=== PATIENT | male | born 1995 | race Caucasian/White ===

== ENCOUNTER → 2024-09-10 | Outpatient (CLI) | payer OTHER, SELFPAY ==
[2024-09-10 10:56] LABS: ALB/GLOB Ratio 1.4 RATIO (0.9-2.4); AST(SGOT) 16 U/L (15-37); Alanine Aminotransfer ALT/SGPT 42 U/L (16-61); Albumin, Serum 4.3 g/dL (3.2-5.0); Alkaline Phosphatase 76 U/L (45-117); Anion Gap 5 (5-15); BUN 14 mg/dL (7-18); Calcium,Total 9.3 mg/dL (8.5-10.1); Chloride 104 mmol/L (98-107); EST Glomerular Filtration Rate 93 mL/min (>60); Est Glom Filt Rate - Afr Amer 112 mL/min (>60); Globulin 3.1 g/dL (2.2-4.2); Glucose 126 mg/dL (74-106); Potassium 4.3 mmol/L (3.5-5.1); Protein, Total 7.4 g/dL (6.4-8.2); Sodium Level 139 mmol/L (136-145)
== END | disposition home or self-care (01) ==
LOC: MTLAB 09:08
PROVIDERS: PCP Family Medicine; Referring Provider Family Medicine; Visit Provider Family Medicine
DX: Z13.1 Encounter for screening for diabetes mellitus (principal)
CPT/HCPCS: 36415; 80053

== ENCOUNTER → 2024-09-14 | Outpatient (CLI) | payer OTHER, SELFPAY ==
[2024-09-14 18:07] LABS: Hemoglobin A1c 5.3 % (3.8-5.6)
== END | disposition home or self-care (01) ==
PROVIDERS: PCP Family Medicine; Referring Provider Family Medicine; Visit Provider Family Medicine
DX: Z13.1 Encounter for screening for diabetes mellitus (principal)
CPT/HCPCS: 36415; 83036

== ENCOUNTER → 2025-03-04 | Outpatient (CLI) | payer OTHER, SELFPAY ==
--- OUTSIDE RECORDS SUMMARY | 2025-03-04 07:22 | XMS RPT_ITS | CCD ---
Author Organization [facility] Care Team Providers Care Housekeeper Name Role Phone Sustersic, Anil Unavailable Unavailable Mary, Nicole Unavailable Unavailable Sustersic, Anil V Unavailable Unavailable Bures, Dmitriy Unavailable Unavailable Sustersic, Anil Unavailable Unavailable Bures, Dmitriy Unavailable Unavailable Sustersic, Anil V Unavailable Unavailable Unavailable Iggy VEGA, Tai Goode Attending Unavailable Siria, Staron Primary Care Unavailable Neyda Beverly Referring Unavailable SiriaNeyda Attending Unavailable Siria, Staron Referring Unavailable Siria, Staron Attending Unavailable Siria, Chalon Primary Care Unavailable Allergies Allergy Classification Reported Allergen(s) Allergy Type Date of Onset Reaction(s) Facility (4 sources) Sulfonamides (Antibiotic); Translations: [Sulfa Drugs] drug allergy [facility] Work Phone: (1 source) drug allergy [facility] Work Phone: (1 source) drug allergy [facility] Work Phone: (2 sources) Amoxicillin / Clavulanate; Translations: [Augmentin] Drug Allergy [facility] Work Phone: (1 source) Furazolidone; Translations: [Furoxone] Drug Allergy [facility] Work Phone: (1 source) cashew nut allergenic extract Drug Allergy 04-19-2024 [facility] (1 source) Penicillins Drug allergy (disorder) 04-19-2024 [facility] (1 source) pistachio nut allergenic extract Drug Allergy 04-19-2024 [facility] (1 source) Sulfonamides (Antibiotic) Drug allergy (disorder) 04-19-2024 [facility] Medications Completed/Discontinued Medications Medication Drug Class(es) Dates Sig (Normalized) Sig (Original) azithromycin 250 mg oral tablet (2 sources) Macrolide Antimicrobial Start: 03-04-2019 Azithromycin 250 MG Oral Tablet TAKE 2 TABLETS ON DAY 1 THEN TAKE 1 TABLET A DAY FOR 4 DAYS. Quantity: 1 Refills: 0 Ordered: 04-Mar-2019 Anil Eduardo DO Start : 04-Mar-2019 Active citalopram 40 mg oral tablet (4 sources) Serotonin Reuptake Inhibitor Start: 03-29-2017 take 1 tablet by mouth once daily Citalopram Hydrobromide 40 MG Oral Tablet TAKE 1 TABLET DAILY (PATIENT MUST BE SEEN BY PHYSICIAN FOR FURTHER REFILLS) Quantity: 90 Refills: 3 Ordered: 22-Jan-2020 Dmitriy Chaves DO Start : 29-Mar-2017 Active fluticasone propionate 0.05 mg/actuat metered dose nasal spray (4 sources) Corticosteroid Start: 05-21-2017 Fluticasone Propionate 50 MCG/ACT Nasal Suspension Quantity: 0 Refills: 0 Ordered: 21-May-2017 DO Start : 21-May-2017 Active Start: 05-21-2017 Fluticasone Pr opionate 50 MCG/ACT Nasal Suspension Refills: 0 Start : 21-May-2017 Active loratadine 10 mg oral capsul e (4 sources) Start: 05-21-2017 Claritin 10 MG Oral Capsule Quantity: 0 Refills: 0 Ordered: 21-May-2017 DO Start : 21-May-2017 Active Start: 05-21-2017 Claritin 10 MG Oral Capsule Refills: 0 Start : 21-May-2017 Active pantoprazole 40 mg delayed release oral tablet (4 sources) Proton Pump Inhibitor Start: 07-30-2017 take 1 tablet by mouth once daily Pantoprazole Sodium 40 MG Oral Tablet Delayed Release TAKE 1 TABLET DAILY. Quantity: 90 Refills: 3 Ordered: 11-Sep-2017 Anil Eduardo DO Start : 30-Jul-2017 Active predniSONE 20 mg oral tablet (1 source) Start: 04-20-2020 take 3 tablets by mouth once daily, then take 2 tablets by mouth once daily, then take 1 tablet by mouth once daily predniSONE 20 MG Oral Tablet TAKE 3 TABLETS DAILY FOR 3 DAYS, THEN 2 TABLETS DAILY FOR 3 DAYS, THEN 1 TABLET DAILY FOR 3 DAYS. Quantity: 18 Refills: 0 Ordered: 20-Apr-2020 Shahid Spence MD Start : 20-Apr-2020 Active tobramycin 3 mg/ml ophthalmic solution (1 source) Aminoglycoside Antibacterial Start: 01-08-2022 take 2 drop(s) into the eye(s) three times daily Tobramycin 0.3 % Ophthalmic Solution 2 drops 3 times a day to the affected eye. Dispense 5 mL. Quantity: 1 Refills: 0 Ordered: 08-Jan-2022 Shahid Spence MD Start : 08-Jan-2022 Active Problems Active Problems Problem Classification Problem Date Documented Date Episodic/Chronic Anxiety disorders (4 sources) Generalized anxiety disorder; Translations: [Generalized anxiety disorder] Chronic Esophageal disorders (4 sources) Gastroesophageal reflux disease; Translations: [Esophageal reflux] Chronic Immunizations and screening for infectious disease (3 sources) Encounter for immunization; Translations: [Requires diphtheria, tetanus and pertussis vaccination] Episodic Inflammation; infection of eye (except that caused by tuberculosis or sexually transmitteddisease) (1 source) Acute conjunctivitis; Translations: [Acute conjunctivitis, unspecified] Episodic Other lower respiratory disease (4 sources) Chronic cough; Translations: [Cough] Episodic Other non-traumatic joint disorders (1 source) Hip pain; Translations: [Pain in joint, pelvic region and thigh] Episodic Other non-traumatic joint disorders (1 source) Joint pain; Translations: [Pain in joint, pelvic region and thigh] Episodic Other screening for suspected conditions (not mental disorders or infectious disease) (1 source) Encounter for screening for diabetes mellitus; Translations: [Encounter for screening for diabetes mellitus] Onset: 10-08-2024 Episodic Residual codes; unclassified (1 source) Requires diphtheria, tetanus and pertussis vaccination; Translations: [Need for Tdap vaccination] Episodic Superficial injury; contusion (1 source) Contusion of left ankle; Translations: [Contusion of ankle] Episodic Past or Other Problems Problem Classification Problem Date Documented Da te Episodic/Chronic Other lower respiratory disease (4 sources) H/O: bronchitis; Translations: [Personal history of other diseases of respiratory system] Resolved: 07-30-2017 Episodic NEGATED: Highlighted row has not occurred!Residual codes; unclassified (8 sources) Disease Episodic Results Test Name Value Interpretation Reference Range Facility Hemoglobin A1con 09-14-2024 HbA1c (Bld) [Mass fraction] 5.3 % Normal 3.8-5.6 [facility] Comment on above: Order Comment: Order Date: 09/14/24 Order Info: 4548-4 - A1C Result Comment: Norm al < 5.7 % Prediabetic 5.7 - 6.4 % Diabetic >or= 6.5 % Please note range changes. Performed By: #### L [id number] #### [facility] [address] [place], [address] Comprehensive Metabolic Prof ilon 09-10-2024 Albumin [Mass/Vol] 4.3 g/dL Normal 3.2-5.0 [facility] Comment on above: Order Comment: Order Date: 09/01/24 Order Info: 0786-1 - CMP Performed By: #### L [id number] #### [facility] [address] [place], [address] Albumin/Globulin [Mass ratio] 1.4 {ratio} Normal 0.9-2.4 [facility] Comment on above: Order Comment: Order Date: 09/01/24 Order Info: 0786-1 - CMP Performed By: #### L [id number] #### [facility] [address] [place], [address] ALK P 76 U/L Normal 45-117 [facility] Comment on above: Order Comment: Order Date: 09/01/24 Order Info: 0786-1 - CMP Performed By: #### L [id number] #### [facility] [address] [place], [address] ALT [Catalytic activity/Vol] 42 U/L Normal 16-61 [facility] Comment on above: Order Comment: Order Date: 09/01/24 Order Info: 0786-1 - CMP Performed By: #### L [id number] #### [facility] [address] [place], [address] AST [Catalytic activity/Vol] 16 U/L Normal 15-37 [facility] Comment on above: Order Comment: Order Date: 09/01/24 Order Info: 0786-1 - CMP Performed By: #### L [id number] #### [facility] [address] [place], [address] Bilirubin [Mass/Vol] 0.70 mg/dL Normal 0.20-1.00 [facility] Comment on above: Order Comment: Order Date: 09/01/24 Order Info: 0786-1 - CMP Result Comment: For patients on eltrombopag therapy, use of Dimension [place] TBIL is not recommended. Performed By: #### L [id number] #### [facility] [address] [place], [address] BUN/CRE 14.0 RATIO Normal 10-20 [facility] Comment on above: Order Comment: Order Date: 09/01/24 Order Info: 0786-1 - CMP Performed By: #### L [id number] #### [facility] [address] [place], [address] CA,Total 9.3 mg/dL Normal 8.5-10.1 [facility] Comment on above: Order Comment: Order Date: 09/01/24 Order Info: 0786-1 - CMP Performed By: #### L [id number] #### [facility] [address] [place], [address] Chloride [Moles/Vol] 104 mmol/L Normal 98-107 [facility] Comment on above: Order Comment: Order Date: 09/01/24 Order Info: 0786-1 - CMP Performed By: #### L [id number] #### [facility] [address] [place], [address] CO2 [Moles/Vol] 30.0 mmol/L Normal 21.0-32.0 [facility] Comment on above: Order Comment: Order Date: 09/01/24 Order Info: 0786-1 - CMP Performed By: #### L [id number] #### [facility] [address] [place], [address] Creatinine [Mass/Vol] 1.00 mg/dL Normal 0.70-1.30 [facility] Comment on above: Order Comment: Order Date: 09/01/24 Order Info: 0786-1 - CMP Result Comment: The validity of the calculated GFR GFRAA in patients over 70 years has not been determined. Clinical correlation is essential. Performed By: #### L [id number] #### [facility] [address] [place], [address] EST GFR - AA 112 mL/min Normal >60 [facility] Comment on above: Order Comment: Order Date: 09/01/24 Order Info: 0786-1 - CMP Result Comment: Afri can Ghanaian GFR Calc Performed By: #### L [id number] #### [facility] [address] [place], [address] GAP 5 Normal 5-15 [facility] Comment on above: Order Comment: Order Date: 09/01/24 Order Info: 0786-1 - CMP Performed By: #### L [id number] #### [facility] [address] [place], [address] GFR/1.73 sq M.predicted among non-blacks MDRD (S/P/Bld) [Vol rate/Area] 93 mL/min/{1.73_m2} Normal >60 [facility] Comment on above: Order Comment: Order Date: 09/01/24 Order Info: 0786-1 - CMP Result Comment: Non- GFR Calc Performed By: #### L [id number] #### [facility] [address] [place], [address] Globulin (S) [Mass/Vol] 3.1 g/dL Normal 2.2-4.2 [facility] Comment on above: Order Comment: Order Date: 09/01/24 Order Info: 0786-1 - CMP Performed By: #### L [id number] #### [facility] [address] [place], [address] Glucose [Mass/Vol] 126 mg/dL High 74-106 [facility] Comment on above: Order Comment: Order Date: 09/01/24 Order Info: 0786-1 - CMP Result Comment: Fast ing Glucose result greater than or equal to 126 mg/dL suggests DIABETES MELLITUS per A.D.A. criteria. Performed By: #### L [id number] #### [facility] [address] [place], [address] Potassium [Moles/Vol] 4.3 mmol/L Normal 3.5-5.1 [facility] Comment on above: Order Comment: Order Date: 09/01/24 Order Info: 0786-1 - CMP Performed By: #### L [id number] #### [facility] [address] [place], [address] Sodium [Moles/Vol] 139 mmol/L Normal 136-145 [facility] Comment on above: Order Comment: Order Date: 09/01/24 Order Info: 0786-1 - CMP Performed By: #### L [id number] #### [facility] [address] [place], [address] T PROT 7.4 g/dL Normal 6.4-8.2 [facility] Comment on above: Order Comment: Order Date: 09/01/24 Order Info: 0786-1 - CMP Performed By: #### L [id number] #### [facility] [address] [place], [address] Urea nitrogen [Mass/Vol] 14 mg/dL Normal 7-18 [facility] Comment on above: Order Comment: Order Date: 09/01/24 Order Info: 0786-1 - CMP Performed By: #### L [id number] #### [facility] [address] [place], [address] Office Visit Reporton 2023 Office Visit Report [facility] [address] [address] OFFICE VISIT Date of Service: 04/19/24 MR#: [id number] Acct: [id number] Patient: KENIA PALENCIA Rep #: [id number] : 1995 Provider: LAURA barron Age/Sex: 28/M Location: [facility] Status: Signed Intake Vital Signs 04/19/24 11:53 Height 6 ft 4 in Weight: 244 lb BMI 29.7 BP 120/60 Position Sitting Pulse 77 Temp 99.5 F H Temp Source Temporal Pulse Oximetry (%) 97 Oxygen Delivery Method room air Intake Visit Reasons: POISON MESSI Accompanied by: Self Allergies cashew nut Allergy (Verified 04/19/24 11:54) Hives Penicillins Allergy (Verified 04/19/24 11:54) Hives pistachio nut Allergy (Verified 04/19/24 11:54) Hives Sulfa (Sulfonamide Antibiotics) (sulfa drugs) Allergy (Verified 04/19/24 11:54) Other Medications ???Medication ???Instructions ???Recorded ???Confirmed ???Type prednisone 10 mg tablet 10 mg PO .COMPLEX 15 days #35 tabs 04/19/24 04/19/24 Rx PFSH Surgical History (Updated 04/19/24 @ 11:55 by Micki Reagan MA) Hx of anterior cruciate ligament surgery Family History (Updated 04/19/24 @ 11:55 by Micki Reagan MA) Other Diabetes Social History (Updated 04/19/24 @ 11:55 by Micki Reagan MA) household members: spouse and children Smoking Status: Never smoker alcohol intake: current HPI HPI Details: KENIA PALENCIA, is a 28 M who presents to the office today for concerns regarding poison messi exposure. 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 ROS Const Constitutional: No body ache, chills, fever(s), malaise or night sweats Resp Respiratory: No shortness of breath Cardio Cardiology: No chest pain at rest or chest pain with exertion Skin Skin: Positive for redness and lesions (blisters) Exam Const General: cooperative, healthy appearing, comfortable, no acute distress, not in acute distress and not in distress Nutritional Appearance: well nourished Orientation: alert, awake and oriented x3 Chest Chest palpation inspection: normal inspection of the chest Resp Effort Inspection: normal respiratory effort Skin Lesions: lesion noted (linear, fluid filled vesicles;) Coding Level of Care Code Off vis,new,level 3 Diagnoses Irritant contact dermatitis due to oils L24.1 Contact dermatitis type: irritant Contact dermatitis trigger: oil Assessment and Plan Assessment and Plan (1) Contact dermatitis: Status: Acute Qualifiers: Contact dermatitis type: irritant Contact dermatitis trigger: oil Qualified Code(s): L24.1 - Irritant contact dermatitis due to oils and greases Plan: This is noted on his bilateral forearms, legs, and groin. He will begin steroid therapy to assist. We also reviewed the potential for Kenalog injection if needed after prednisone therapy. Encouraged to get plenty of rest, drink lots of clear liquids, and use Tylenol or Ibuprofen (unless contraindicated) for fever and comfort. Patient also educated on other symptomatic management techniques. To be seen in 7-10 days if no improvement; sooner if worsening of symptoms.??? Patient advised of potential red flags and when appropriate to report to the ED.??? Patient verbalized understanding and agreement with all the above. Medications: New prednisone 10 mg orally; 40mg x5 days, 20mg x5 days, 10mg x5 days 15 days 35 tabs 0RF 04/19/24 1214 Date [facility] CASING SOAKER CASING SOAKER-C Cosigner Signature: Date (if applicable) CC: Normal [facility] Office Visit (Urgent Care)on 01-08-2022 Follow-up visit Diagnoses/Problems Assessed Acute conjunctivitis (372.00) (H10.30) Orders Acute conjunctivitis Start: Tobramycin 0.3 % Ophthalmic Solution; 2 drops 3 times a day to the affected eye. Dispense 5 mL Rx By: Shahid Spence; Dispense: 0 Days ; #:1 X 5 ML Bottle; Refill: 0;For: Acute conjunctivitis; NICOLE = N; Sent To: [facility] Patient Discussion/Summary Please see your primary care physician in 3 days. as needed Use the eyedrops until the eye symptoms have resolved and then for 2 additional days. Wash your hands frequently. Seek follow-up medical care if symptoms worsen or do not resolve. Chief Complaint Chief Complaints Eye Pain History of Present Illness 26-year-old male with a 3 to 4-day history of irritation with redness and tearing in his right eye. No foreign body exposure. No fever. Review of systems is otherwise negative for constitutional, ear nose and throat, neck, heart, lungs, and abdomen. Review of Systems Constitutional: as noted in HPI. 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,M25.552,M25.561,M2 5.562,G89.29) Chronic cough (786.2) (R05.3) Contusion of left ankle, initial encounter (924.21) (S90.02XA) GERD (gastroesophageal reflux disease) (530.81) (K21.9) Hip pain, right (719.45) (M25.551) Need for Tdap vaccination (V06.1) (Z23) Past Medical History Problems History of acute bronchitis (V12.69) (Z87.09) Resolved Date: 30 Jul 2017 Surgical History Problems History of Tonsillectomy Family History Mother Family history of diabetes mellitus (V18.0) (Z83.3) Family history of myocardial infarction (V17.3) (Z82.49) Maternal Grandfather Family history of myocardial infarction (V17.3) (Z82.49) Social History Problems Never a smoker Allergies Medication Augmentin Recorded By: Malou Aguilar; 05/21/2017 1:59:38 PM Furoxone Recorded By: Dana Harvey; 06/11/2021 2:32:45 PM Sulfa Drugs Recorded By: Anil Eduardo; 05/21/2017 12:32:00 PM Current Meds Medication NameInstruction Azithromycin 250 MG Oral TabletTAKE 2 TABLETS ON DAY 1 THEN TAKE 1 TABLET A DAY FOR 4 DAYS. Citalopram Hydrobromide 40 MG Oral TabletTAKE 1 TABLET DAILY (PATIENT MUST BE SEEN BY PHYSICIAN FOR FURTHER REFILLS) Claritin 10 MG Oral Capsule Fluticasone Propionate 50 MCG/ACT Nasal Suspension Pantoprazole Sodium 40 MG Oral Tablet Delayed ReleaseTAKE 1 TABLET DAILY. predniSONE 20 MG Oral TabletTAKE 3 TABLETS DAILY FOR 3 DAYS, THEN 2 TABLETS DAILY FOR 3 DAYS, THEN 1 TABLET DAILY FOR 3 DAYS. Vitals Vital Signs Recorded: 08Jan2022 07:30PM Smlnnlabbni94.1 F Heart Rate87 Nfobulwissx96 Fkgiqsge516 Qqhvydldl64 Height6 ft 4 in Yxejdk727 lb 5.42 oz BMI Knipnqkjdv24.35 kg/m2 BSA Calculated2.43 Tobacco Useb) No PHQ-2 #1. Over the last 2 weeks have you felt down, depressed or hopeless? (If yes, answer PHQ-9 below)No PHQ-2 #2. Over the last 2 weeks have you felt little interest or pleasure in doing things? (If yes, answer PHQ-9 below)No O2 Efdqyauhhx21 Pain Scale5 Physical Exam Patient appears in no apparent distress and is well-hydrated. Vital signs noted. Examination of the eyes reveals pupils equal round and reactive to light. Extraocular motions are intact. The left eye appears normal. Right eye reveals conjunctival erythema with some tearing. No foreign body seen. No stye seen. Signatures Electronically signed by : Shahid Spence MD; Jan 08 2022 7:36PM EST (Author) Normal [facility] Tobacco Screening.on 022 Adult depression screening assessment No [facility] Work Phone: Tobacco use status [facility] b) No [facility] Work Phone: ANKLE, COMPLETE, MIN 3 VIEWS on 06-11-2021 ANKLE, COMPLETE, MIN 3 VIEWS Patient Name: KENIA PALENCIA STUDY: ANKLE, COMPLETE, MIN 3 VIEWS; Left; 06/11/2021 2:49 pm INDICATION: pain & med/lat swelling L ankle s/p fall last PM. COMPARISON: None. ACCESSION NUMBER(S): [id number] ORDERING CLINICIAN: ZULLY REESE FINDINGS: Three views left ankle: There is no fracture or dislocation. The ankle mortise is intact. There is bimalleolar soft tissue swelling. IMPRESSION: Soft tissue swelling left ankle; no acute bony abnormality. Electronically signed by: SEBASTIÁN HODGES MD Normal [facility] Office Visit (Urgent Care)on 06-11-2021 Follow-up visit Diagnoses/Problems Assessed Contusion of left ankle, initial encounter (924.21) (S90.02XA) Orders Contusion of left ankle, initial encounter Xray Ankle 3 View; Status:Resulted - Preliminary; Done: [id number] 02:50PM Due:[id number];Ordered; Stat; For:Contusion of left ankle, initial encounter; Ordered By:Zully Reese; Laterality : Left Radiologist to Determine Optimal Study : Y What are the patient's signs and symptoms? : pain AND med/lat swelling L ankle s/p fall last PM Patient Discussion/Summary We will call if radiology read something different on the x-ray. Ice and elevate to limit pain and swelling. Take Tylenol, ibuprofen or Aleve as needed for pain. Obtain a compression support from the [employer] store, where that as helpful. Follow-up with your regular doctor if symptoms persist, you may need further evaluation. Chief Complaint Chief Complaints Ankle Pain History of Present Illness Reports that last night he jumped about 6 feet off a rock ledge and landed on his feet. Now has pain in both medial and lateral left ankle. No pain in the right ankle, no pain in the back. No loss of consciousness or any other neck or back pain. States that he landed flat on the bottom of his foot, did not roll his ankle. Home treatment has been ice and elevation. Review of Systems Constitutional: as noted in HPI. Musculoskeletal: as noted in HPI. 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,M25.552,M25.561,M2 5.562,G89.29) Chronic cough (786.2) (R05) GERD (gastroesophageal reflux disease) (530.81) (K21.9) Hip pain, right (719.45) (M25.551) Need for Tdap vaccination (V06.1) (Z23) Past Medical History Problems History of acute bronchitis (V12.69) (Z87.09) Resolved Date: 30 Jul 2017 Surgical History Problems History of Tonsillectomy Family History Mother Family history of diabetes mellitus (V18.0) (Z83.3) Family history of myocardial infarction (V17.3) (Z82.49) Maternal Grandfather Family history of myocardial infarction (V17.3) (Z82.49) Social History Problems Never a smoker Allergies Medication Augmentin Recorded By: Malou Aguilar; 05/21/2017 1:59:38 PM Furoxone Recorded By: Dana Harvey; 06/11/2021 2:32:45 PM Sulfa Drugs Recorded By: Anil Eduardo; 05/21/2017 12:32:00 PM Current Meds Medication NameInstruction Azithromycin 250 MG Oral TabletTAKE 2 TABLETS ON DAY 1 THEN TAKE 1 TABLET A DAY FOR 4 DAYS. Citalopram Hydrobromide 40 MG Oral TabletTAKE 1 TABLET DAILY (PATIENT MUST BE SEEN BY PHYSICIAN FOR FURTHER REFILLS) Claritin 10 MG Oral Capsule Fluticasone Propionate 50 MCG/ACT Nasal Suspension Pantoprazole Sodium 40 MG Oral Tablet Delayed ReleaseTAKE 1 TABLET DAILY. predniSONE 20 MG Oral TabletTAKE 3 TABLETS DAILY FOR 3 DAYS, THEN 2 TABLETS DAILY FOR 3 DAYS, THEN 1 TABLET DAILY FOR 3 DAYS. Vitals Vital Signs Recorded: [id number] 02:31PM Lbhjsnlcjah07.6 F Heart Rate95 Kwunalkw734 Hitbeffdw95 Height6 ft 4 in Gdldzk153 lb BMI Acvtfgycfv70 kg/m2 BSA Calculated2.35 Tobacco Useb) No O2 Tbfibafdnn38 Pain Scale4 Physical Exam Alert, enters on crutches. Left leg is grossly atraumatic. Ankle shows diffuse circumferential swelling and there is tenderness over both medial and lateral malleolus. Nontender over the fifth metatarsal or fibular head. Nontender anteriorly or posteriorly over the ankle. No other bony point tenderness of the tibia or fibula. My review of x-ray shows no fracture, await radiology reading. Results/Data Xray Ankle 3 [id number] 02:50PMZully Reese Test NameResultFlagReference Xray Ankle 3 View Please click on the link to view the study images Signatures Electronically signed by : Zully Reese MD MPH; Jun 11 2021 2:51PM EST (Author) Normal [facility] Vital Signs Date Time Vital Sign Value Performing Clinician Facility 01-08-2022 19:30-0400 Body height 193.04 cm Anil nVoq Sustersic Work Phone: [facility] Work Phone: 01-08-2022 19:30-0400 Body mass index (BMI) [Ratio] 30.35 kg/m2 Anil Savorfullersic Work Phone: [facility] Work Phone: 01-08-2022 19:30-0400 Body surface area Derived from formula 2.43 m2 Anil nVoq [facility] Work Phone: [facility] [facility] Work Phone: 01-08-2022 19:30-0400 Body temperature 98.1 [degF] Anil nVoq Sustersic Work Phone: [facility] Work Phone: 01-08-2022 19:30-0400 Body weight 113.1 kg Anil V [facility] Work Phone: [facility] Work Phone: 01-08-2022 19:30-0400 Diastolic blood pressure 88 mm[Hg] Anil V [facility]usters[facility] Work Phone: [facility] Work Phone: 01-08-2022 19:30-0400 Heart rate 87 /min Anil V [facility] Work Phone: [facility] Work Phone: 01-08-2022 19:30-0400 Respiratory rate 16 /min Anil V [facility] Work Phone: [facility] Work Phone: 01-08-2022 19:30-0400 SaO2% (BldA) [Mass fraction] 97 % Anil Tashi [facility] Work Phone: [facility] Work Phone: 01-08-2022 19:30-0400 Systolic blood pressure 128 mm[Hg] Anil Tashi [facility] Work Phone: [facility] Work Phone: 01-08-2022 19:30-0400 5 1 Anil Tashi [facility] Work Phone: [facility] Work Phone: Comment on above: [employer] Encounters Encounter Date Encounter Type Care Provider Facility Start: 09-14-2024 End: 09-14-2024 ambulatory [facility] Facility:[facility] Start: 09-10-2024 End: 09-10-2024 ambulatory [facility] Facility:[facility] Start: 04-19-2024 End: 04-19-2024 ambulatory [facility] Facility:[facility] Start: 01-08-2022 Office outpatient vi sit 15 minutes Anil Tashi Mitchellersic Work Phone: [facility] Work Phone: Start: 09-18-2018 Patient encounter procedure Anilbenjamin Eduardo [facility] Work Phone: Start: 07-30-2017 Patient encounter procedure Anilbenjamin Montesinosic [facility] Work Phone: Start: 05-21-2017 Patient encounter procedure Anilbenjamin Montesinosic [facility] Work Phone: Start: 03-29-2017 Patient encounter procedure Anilbenjamin Montesinosic [facility] Work Phone: Procedures Date Procedure Procedure Detail Performing Clinician Tonsillectomy Anil cuevas Immunizations Immunization Date Immunization Notes Care Provider Fa cility 09-18-2018 tetanus toxoid, redu guero diphtheria toxoid, and acellular pertussis vaccine, adsorbed; Translations: [Tdap (Boostrix)] Anil Montesinosefren [place] [address] Work Phone: Comment on above: Series: Payers Date Payer Category Payer Self-pay 2024 Unknown [id number] Unknown [facility] Unknown [id number] Unknown [id number] Unknown [id number] Social History Date Type Detail Facility Never a smoker Never a smoker -[facility] Work Phone: NEGATED: [place] - Never smoker [place] [id number] Work Phone: Functional Status Date Assessment Result Facility NEGATED: [place] Functional performance Functional status health issues are not documented Disease [place] [address] Work Phone: Mental Status Date Assessment Result Facility NEGATED: [place] Cognitive function [Interpretation] Cognitive status health issues are not documented Disease [place] [address] Work Phone: History of Present illness Narrative Note Date & Type Note Facility History of Present illness Narrative 26-year-old male with a 3 to 4-day history of irritation with redness and tearing in his right eye. No foreign body exposure. No fever. Review of systems is otherwise negative for constitutional, ear nose and throat, neck, heart, lungs, and abdomen. [facility] Work Phone: Family History No Family History Records Found Mother Name Dates Details Family history of diabetes m ellitus(V18.0, Z83.3) Status:Active Family history of myocardial infarction(V17.3, Z82.49) Status:Active Grandfather Name Dates Details Family history of myocardial infarction(V17.3, Z82.49) Status:Active Mother Name Dates Details Family history of diabetes m ellitus(V18.0, Z83.3) Status:Active Family history of myocardial infarction(V17.3, Z82.49) Status:Active Grandfather Name Dates Details Family history of myocardial infarction(V17.3, Z82.49) Status:Active Mother Name Dates Details Family history of diabetes m ellitus(V18.0, Z83.3) Status:Active Family history of myocardial infarction(V17.3, Z82.49) Status:Active Grandfather Name Dates Details Family history of myocardial infarction(V17.3, Z82.49) Status:Active Unknown Family Member Name Dates Details Family history of diabetes m ellitus: Mother(V18.0, Z83.3) Status:Active Family history of myocardial infarction: Mother, Maternal Grandfather(V17.3, Z82.49) Status:Active Summary Purpose Advance Directives No Advanced Directives Records FoundNo Advanced Directives Records FoundNo Advanced Directives Records Found Additional Source Comments (unrecognized sect ion and content) No Status Records FoundNo Status Records FoundNo Status Records Found INFORMATION SOURCE (unrecogn ized section and content) DATE CREATED AUTHOR 01/10/2022 [facility] DATE CREATED AUTHOR AUTHOR'S ORGANIZ ATION 01/10/2022 [employer] DATE CREATED AUTHOR AUTHOR'S ORGANIZ ATION 10/10/2024 [facility] FOR RECORDS PERTAINING TO PATIENTS WHO ARE OR HAVE BEEN ENROLLED IN A CHEMICAL DEPENDENCY/SUBSTANCEABUSE PROGRAM, SOME INFORMATION MAY BE OMITTED. This clinical summary was aggregated from multiple sources. Caution should be exercised in using it in the provision of clinical care. This summary normalizes information from multiple sources, and as a consequence, information in this document may materially change the coding, format and clinical context of patient data. In addition, data may be omitted in some cases. CLINICAL DECISIONS SHOULD BE BASED ON THE PRIMARY CLINICAL RECORDS. [employer] provides no warranty or guarantee of the accuracy or completeness of information in this document.
[2025-03-04 10:55] LABS: ALB/GLOB Ratio 2.1 RATIO (0.9-2.4); AST(SGOT) 26 U/L (<=37); Alanine Aminotransfer ALT/SGPT 38 U/L (<=46); Albumin, Serum 4.8 g/dL (3.5-5.0); Alkaline Phosphatase 74 U/L (40-129); Anion Gap 10 (5-15); BUN 18 mg/dL (4-19); BUN/Creat Ratio 20.7 RATIO (10-20); Calcium,Total 9.4 mg/dL (7.6-11.0); Carbon Dioxide 25.2 mmol/L (21.0-32.0); Chloride 103 mmol/L (98-108); Creatinine, Serum 0.86 mg/dL (0.70-1.20); EST Glomerular Filtration Rate 119 (>60); Globulin 2.2 g/dL (2.2-4.2); Glucose 118 mg/dL (70-99); Potassium 4.6 mmol/L (3.3-5.1); Protein, Total 7.1 g/dL (5.9-8.4); Sodium Level 139 mmol/L (133-145); Total Bilirubin 0.79 mg/dL (0.00-1.30)
[2025-03-04 11:07] LABS: Rheumatoid Factor < 10.0 IU/mL (<15)
[2025-03-05 09:08] LABS: ANTINUCLEAR ANTIBODIES DIRECT Negative (Negative)
== END | disposition home or self-care (01) ==
LOC: MTLAB 07:20
PROVIDERS: PCP Family Medicine; Referring Provider Family Medicine; Visit Provider Family Medicine
DX: M25.50 Pain in unspecified joint (principal)
CPT/HCPCS: 36415; 80053; 82533; 86038; 86431

== ENCOUNTER → 2025-03-16 | Outpatient (CLI) | payer OTHER, SELFPAY | END | disposition home or self-care (01) | LOC: MTLAB 09:22 | PROVIDERS: PCP Family Medicine; Referring Provider Family Medicine; Visit Provider Family Medicine | DX: R73.09 Other abnormal glucose (principal) | CPT/HCPCS: 36415; 83036 ==